=== PATIENT | female | born 1940 | race Two or more races ===

== ENCOUNTER 2023-07-04 11:15 | Inpatient (IN) | payer OTHER ==
[~2023-07-04] VITALS: Ht 162.6 cm; Wt 61.2 kg
[2023-07-16] MEDS ORDERED: TRELEGY ELLIPT1 EAC1 (08:08)
[2023-07-16] MEDS ORDERED: AZELASTINE137 MCG/0. (08:08)
[2023-07-16] MEDS ORDERED: FLONASE16 GM (08:08)
[2023-07-16] MEDS ORDERED: MONTELUKAST SOD10 MG (08:08)
[2023-07-16] MEDS ORDERED: PENTOXIFYLLINE400 MG (08:08)
[2023-07-16] MEDS ORDERED: LEVO-T25 MCG (08:08)
[2023-07-16] MEDS ORDERED: AMLODIPINE BESYL5 MG (08:08)
[2023-07-16] MEDS ORDERED: CEFTRIAXONE SODIUM 2,000 MG VIAL IV ONE (08:30)
[2023-07-16] MEDS ORDERED: METRONIDAZOLE/SODIUM CHLORIDE 500 MG/100 ML PIGGYBACK IV ONE (08:30)
[2023-07-16] MEDS ORDERED: ENALAPRILAT DIHYDRATE 1.25 MG/ML VIAL IV ONE (08:45)
[2023-07-16] MEDS ORDERED: CELECOXIB 200 MG CAPSULE PO SCH ×2 (10:37→17:00)
[2023-07-16] MEDS ORDERED: ONDANSETRON HCL 2 MG/ML VIAL IV PRN ×2 (10:45→11:00)
[2023-07-16] MEDS ORDERED: RINGERS SOLUTION,LACTATED 1,000 ML IV SCH ×2 (10:45→11:00)
[2023-07-16] MEDS ORDERED: DEXTROSE 50 % IN WATER 0.5 G/ML DISP.SYRIN IV PRN (10:45)
[2023-07-16] MEDS ORDERED: MORPHINE SULFATE 4 MG/ML CARTRIDGE IV PRN ×2 (10:45→11:00)
[2023-07-16] MEDS ORDERED: OxyCODONE HCL 5 MG TABLET (ROXICODONE) PO PRN ×2 (10:45→11:00)
[2023-07-16] MEDS ORDERED: DEXTROSE 50 % IN WATER 0.5 G/ML VIAL IV PRN (11:00)
[2023-07-16] MEDS ORDERED: MORPHINE SULFATE 4 MG/ML VIAL IV ONE ×2 (11:40→12:30)
[2023-07-16] MEDS ORDERED: ONDANSETRON HCL 2 MG/ML VIAL ONE (12:33)
[2023-07-16] MEDS ORDERED: ONDANSETRON HCL 2 MG/ML VIAL IV ONE (12:35)
[2023-07-16] MEDS ORDERED: HYOSCYAMINE SULFATE 0.125 MG TAB.SUBL SL SCH ×2 (13:00)
[2023-07-16] MEDS ORDERED: SIMETHICONE 125 MG CAPSULE PO SCH (13:00)
[2023-07-16] MEDS ORDERED: ALBUTEROL SULFATE 3 ML/2.5 MG AMPUL.NEB IH SCH (13:40)
[2023-07-16] MEDS ORDERED: ENALAPRILAT DIHYDRATE 1.25 MG/ML VIAL IV PRN (13:45)
[2023-07-16] MEDS ORDERED: ACETAMINOPHEN 500 MG GEL..CAP PO SCH ×2 (14:00)
[2023-07-16 14:18] LABS: HEMATOCRIT 34.1 % (36.0-45.00); HEMOGLOBIN 11.4 g/dL (12.0-15.00); MEAN CORPUSCULAR HEMOGLOBIN 29.5 pg (27.00-32.0); MEAN CORPUSCULAR HGB CONC 33.6 g/dl (32.0-36.0); PLATELET COUNT 164 K/uL (150-450); RED BLOOD COUNT 3.87 M/uL (4.00-6.00); RED CELL DISTRIBUTION WIDTH 14.2 % (11.5-14.5)
[2023-07-16 14:24] LABS: ABG PH 7.366 (7.35-7.45); ABG pCO2 38.3 mmHg (35-45); BASE EXCESS -3.4 mmol/l; BICARBONATE 21.5 mmol/l (23-25); SaO2 95.1 %; Tco2 22.7 mmol/l
[2023-07-16 14:36] LABS: allen test SATISFACTORY; o2 21 %; puncture site RADIAL LEFT
[2023-07-16] MEDS ORDERED: GABAPENTIN 300 MG CAPSULE PO SCH ×2 (17:00)
[2023-07-16] MEDS ORDERED: METOCLOPRAMIDE HCL 5 MG/ML VIAL IV SCH (17:00)
[2023-07-16] MEDS ORDERED: POLYETHYLENE GLYCOL 3350 17 GM BLIST.PACK PO SCH ×2 (17:00)
[2023-07-16] MEDS ORDERED: FAMOTIDINE/PF 20 MG/2 ML VIAL IV PUSH SCH ×2 (21:00)
[2023-07-16] MEDS ORDERED: MONTELUKAST SODIUM 10 MG TABLET PO SCH (21:00)
[2023-07-17] MEDS ORDERED: SYNTHROID 75 MCG (MARCA ORIGINAL) PO SCH (06:00)
[2023-07-17 08:18] LABS: HEMATOCRIT 32.6 % (36.0-45.00); HEMOGLOBIN 10.8 g/dL (12.0-15.00); MEAN CELL VOLUME 90.1 fL (80.00-100.00); MEAN CORPUSCULAR HEMOGLOBIN 29.9 pg (27.00-32.0); MEAN CORPUSCULAR HGB CONC 33.2 g/dl (32.0-36.0); RED BLOOD COUNT 3.62 M/uL (4.00-6.00); RED CELL DISTRIBUTION WIDTH 14.2 % (11.5-14.5)
[2023-07-17 08:21] LABS: PLATELET COUNT 130 K/uL (150-450)
[2023-07-17 08:35] LABS: ALBUMIN 2.8 gm/dL (3.4-5.0); CALCIUM 7.7 mg/dL (8.5-10.1); CREATININE SERUM 1.06 mg/dL (0.55-1.02); GFR 49.27; MAGNESIUM 1.8 mg/dL (1.8-2.4); PHOSPHOROUS 4.7 mg/dL (2.5-4.9); POTASSIUM 4.91 mEq/L (3.5-5.1)
[2023-07-17] MEDS ORDERED: LACTOBACILLUS ACIDOPHILUS 1 CAP CAP PO SCH (09:00)
[2023-07-17] MEDS ORDERED: LACTULOSE 20 G/30 ML BLIST.PACK PO SCH ×2 (09:00)
[2023-07-17] MEDS ORDERED: AMLODIPINE BESYLATE 5 MG TABLET PO SCH (09:00)
[2023-07-17] MEDS ORDERED: Cyanocobalamin/Mecobalamin 1 TAB.SL SL SCH ×2 (11:06→12:00)
[2023-07-17] MEDS ORDERED: SOD FERRIC GLUC COMPLX/SUCROSE 62.5 MG in 0.9 % SODIUM CHLORIDE 50 ML IV SCH (12:00)
[2023-07-17] MEDS ORDERED: ENOXAPARIN SODIUM 40 MG/0.4 ML SYRINGE SUBCUTANEO SCH ×2 (17:00)
[2023-07-18 07:09] LABS: HEMATOCRIT 32.4 % (36.0-45.00); HEMOGLOBIN 10.8 g/dL (12.0-15.00); MEAN CORPUSCULAR HEMOGLOBIN 30.1 pg (27.00-32.0); MEAN CORPUSCULAR HGB CONC 33.5 g/dl (32.0-36.0); PLATELET COUNT 125 K/uL (150-450); RED BLOOD COUNT 3.59 M/uL (4.00-6.00); RED CELL DISTRIBUTION WIDTH 14.2 % (11.5-14.5)
[2023-07-18 07:59] LABS: MANUAL PLATELET COUNT 408
[2023-07-18 08:13] LABS: CREATININE SERUM 0.96 mg/dL (0.55-1.02); GFR 55.24; PHOSPHOROUS 2.9 mg/dL (2.5-4.9); POTASSIUM 4.69 mEq/L (3.5-5.1)
[2023-07-18] MEDS ORDERED: ENOXAPARIN SODIUM 40 MG/0.4 ML SYRINGE SUBCUTANEO SCH ×2 (09:00)
[2023-07-18] MEDS ORDERED: MORPHINE SULFATE 4 MG/ML CARTRIDGE IV PRN (13:30)
[2023-07-19] MEDS ORDERED: TAMSULOSIN HCL 0.4 MG CAP PO STA (05:31)
[2023-07-19 08:24] LABS: HEMOGLOBIN 11.7 g/dL (12.0-15.00); MEAN CELL VOLUME 90.4 fL (80.00-100.00); MEAN CORPUSCULAR HEMOGLOBIN 30.2 pg (27.00-32.0); MEAN CORPUSCULAR HGB CONC 33.5 g/dl (32.0-36.0); PLATELET COUNT 158 K/uL (150-450); RED BLOOD COUNT 3.88 M/uL (4.00-6.00); RED CELL DISTRIBUTION WIDTH 14.4 % (11.5-14.5)
[2023-07-19] MEDS ORDERED: POLYETHYLENE GLYCOL 3350 17 GM BLIST.PACK PO SCH (09:00)
[2023-07-19] MEDS ORDERED: LEVALBUTEROL HCL 0.63 MG/3 ML SOLUTION IH SCH (17:00)
[2023-07-19] MEDS ORDERED: TAMSULOSIN HCL 0.4 MG CAP PO SCH (21:00)
[2023-07-19] MEDS ORDERED: PANTOPRAZOLE SODIUM 40 MG/VIAL VIAL IV SCH (21:45)
[2023-07-19] MEDS ORDERED: INSULIN LISPRO 1,000 UNIT/10 ML UNITS SUBCUTANEO PRN (22:45)
[2023-07-19] MEDS ORDERED: DEXTROSE 50 % IN WATER 0.5 G/ML VIAL IV PRN (22:45)
[2023-07-20] MEDS ORDERED: PIPERACILLIN/TAZOBACTAM SODIUM 3.375 GM in 0.9 % SODIUM CHLORIDE 100 ML IV SCH (06:32)
[2023-07-20 07:23] LABS: CALCIUM 8.5 mg/dL (8.5-10.1); CREATININE SERUM 1.92 mg/dL (0.55-1.02); GFR 24.82; MAGNESIUM 2.3 mg/dL (1.8-2.4); PHOSPHOROUS 4.1 mg/dL (2.5-4.9); POTASSIUM 4.72 mEq/L (3.5-5.1)
[2023-07-20 07:24] LABS: CHOL HDL RATIO 8.2 (0-5.0)
[2023-07-20 11:40] LABS: HEMATOCRIT 30.4 % (36.0-45.00); HEMOGLOBIN 10.2 g/dL (12.0-15.00); MEAN CELL VOLUME 88.9 fL (80.00-100.00); MEAN CORPUSCULAR HEMOGLOBIN 29.7 pg (27.00-32.0); MEAN CORPUSCULAR HGB CONC 33.4 g/dl (32.0-36.0); PLATELET COUNT 201 K/uL (150-450); RED BLOOD COUNT 3.41 M/uL (4.00-6.00)
[2023-07-20] MEDS ORDERED: DIATRIZOATE MEGLUMINE, SODIUM 30 ML BOTTLE PO NR (15:30)
[2023-07-20] MEDS ORDERED: AMINO ACIDS 4.25 %/DEXTROSE 5% 1,000 ML PERIFERAL SCH (17:00)
[2023-07-20] MEDS ORDERED: LORazepam 2 MG/ML VIAL IV SCH (21:00)
[2023-07-21] MEDS ORDERED: DIATRIZOATE MEGLUMINE, SODIUM 30 ML BOTTLE PO NR (09:00)
[2023-07-21 09:14] LABS: HEMATOCRIT 28.1 % (36.0-45.00); HEMOGLOBIN 9.4 g/dL (12.0-15.00); MEAN CELL VOLUME 89.4 fL (80.00-100.00); MEAN CORPUSCULAR HGB CONC 33.5 g/dl (32.0-36.0); PLATELET COUNT 177 K/uL (150-450); RED BLOOD COUNT 3.14 M/uL (4.00-6.00); RED CELL DISTRIBUTION WIDTH 14.7 % (11.5-14.5)
[2023-07-21 09:40] LABS: CALCIUM 8.1 mg/dL (8.5-10.1); CREATININE SERUM 1.07 mg/dL (0.55-1.02); GFR 48.74; PHOSPHOROUS 2.9 mg/dL (2.5-4.9); POTASSIUM 3.96 mEq/L (3.5-5.1)
[2023-07-21] MEDS ORDERED: TEMAZEPAM 15 MG CAPSULE PO SCH ×2 (17:00→21:00)
[2023-07-22 07:41] LABS: ALBUMIN 2.1 gm/dL (3.4-5.0); BILIRUBIN TOTAL 0.57 mg/dL (0.3-1.2); BILIRUBIN,CONJUGATED 0.18 mg/dL (0.0-0.2); BILIRUBIN,UNCONJUGATED 0.39 mg/dL (0.0-0.6); CALCIUM 8.4 mg/dL (8.5-10.1); CREATININE SERUM 0.81 mg/dL (0.55-1.02); GFR 67.2; GLOBULINA 2.8 G/DL (2.4-3.5); MAGNESIUM 1.9 mg/dL (1.8-2.4); POTASSIUM 4.78 mEq/L (3.5-5.1); TOTAL PROTEIN 4.9 gm/dL (6.4-8.2)
[2023-07-22 07:47] LABS: HEMATOCRIT 35.3 % (36.0-45.00); HEMOGLOBIN 11.6 g/dL (12.0-15.00); MEAN CELL VOLUME 89.1 fL (80.00-100.00); MEAN CORPUSCULAR HEMOGLOBIN 29.3 pg (27.00-32.0); MEAN CORPUSCULAR HGB CONC 32.8 g/dl (32.0-36.0); PLATELET COUNT 220 K/uL (150-450); RED BLOOD COUNT 3.96 M/uL (4.00-6.00); RED CELL DISTRIBUTION WIDTH 14.4 % (11.5-14.5)
[2023-07-22 07:50] LABS: INR 0.96; PARTIAL THROMBOPLASTIN TIME 31.3 SECONDS (22.0-34.0); PROTHROMBIN TIME 10.1 SECONDS (9.0-11.5)
[2023-07-22] MEDS ORDERED: LORazepam 2 MG/ML VIAL IV PUSH STA (08:48)
[2023-07-22] MEDS ORDERED: VANCOMYCIN HCL 1,000 MG VIAL IV SCH (13:00)
[2023-07-22] MEDS ORDERED: MEROPENEM 500 MG in 0.9 % SODIUM CHLORIDE 50 ML IV SCH (13:00)
[2023-07-22 13:32] LABS: ABG PH 7.449 (7.35-7.45); ABG pCO2 25.9 mmHg (35-45); BASE EXCESS -4.6 mmol/l; BICARBONATE 17.5 mmol/l (23-25); SaO2 93.7 %; Tco2 18.3 mmol/l
[2023-07-22 13:42] LABS: o2 21 %; puncture site RADIAL RIGHT
[2023-07-22 13:43] LABS: allen test SATISFACTORY
[2023-07-22] MEDS ORDERED: AA 4.25%/CAL/LYTES/DEXT 5% 1,000 ML PERIFERAL SCH (17:00)
[2023-07-23 07:59] LABS: HEMATOCRIT 35.2 % (36.0-45.00); HEMOGLOBIN 11.9 g/dL (12.0-15.00); MEAN CELL VOLUME 86.9 fL (80.00-100.00); MEAN CORPUSCULAR HEMOGLOBIN 29.4 pg (27.00-32.0); MEAN CORPUSCULAR HGB CONC 33.8 g/dl (32.0-36.0); PLATELET COUNT 232 K/uL (150-450); RED BLOOD COUNT 4.05 M/uL (4.00-6.00); RED CELL DISTRIBUTION WIDTH 14.6 % (11.5-14.5)
[2023-07-23 08:32] LABS: CALCIUM 8.1 mg/dL (8.5-10.1); CREATININE SERUM 0.72 mg/dL (0.55-1.02); GFR 76.98; MAGNESIUM 1.7 mg/dL (1.8-2.4); PHOSPHOROUS 2.8 mg/dL (2.5-4.9); POTASSIUM 3.43 mEq/L (3.5-5.1)
[2023-07-23 08:34] LABS: C-REACTIVE PROTEIN 11.3 MG/DL (0.00-0.29)
[2023-07-23] MEDS ORDERED: POTASSIUM CHLORIDE 20MEQ/100ML H2O PB IV NR (10:15)
[2023-07-23] MEDS ORDERED: MAGNESIUM SULFATE IN WATER 50 ML IV NR (10:15)
[2023-07-23] MEDS ORDERED: MEROPENEM 500 MG in 0.9 % SODIUM CHLORIDE 50 ML IV SCH (14:00)
[2023-07-23] MEDS ORDERED: FLUCONAZOLE IN NACL,ISO-OSM 400 MG/200 ML PIGGYBAG IV SCH (17:00)
[2023-07-23] MEDS ORDERED: GABAPENTIN 250 MG/5 ML ML PO SCH (17:00)
[2023-07-23] MEDS ORDERED: fentaNYL CITRATE 50 MCG/ML AMPUL IV PUSH ONE (17:45)
[2023-07-24] MEDS ORDERED: PANTOPRAZOLE SODIUM 40 MG/VIAL VIAL IV SCH (06:00)
[2023-07-24 07:43] LABS: HEMATOCRIT 30.3 % (36.0-45.00); MEAN CELL VOLUME 89.8 fL (80.00-100.00); MEAN CORPUSCULAR HEMOGLOBIN 29.7 pg (27.00-32.0); MEAN CORPUSCULAR HGB CONC 33.1 g/dl (32.0-36.0); PLATELET COUNT 219 K/uL (150-450); RED BLOOD COUNT 3.37 M/uL (4.00-6.00); RED CELL DISTRIBUTION WIDTH 14.6 % (11.5-14.5)
[2023-07-24 08:30] LABS: CALCIUM 8.2 mg/dL (8.5-10.1); CREATININE SERUM 1.05 mg/dL (0.55-1.02); GFR 49.81; MAGNESIUM 2.4 mg/dL (1.8-2.4); PHOSPHOROUS 3.2 mg/dL (2.5-4.9); POTASSIUM 4.54 mEq/L (3.5-5.1)
[2023-07-24 08:31] LABS: TSH 7.2 uIU/mL (0.358-3.74)
[2023-07-24 08:51] LABS: PLATELET ESTIMATE NORMAL (NORMAL)
[2023-07-24] MEDS ORDERED: FLUCONAZOLE IN NACL,ISO-OSM 100 ML IV SCH (12:00)
[2023-07-24] MEDS ORDERED: LEVOTHYROXINE SODIUM 100 MCG/VIAL VIAL IV STA (13:12)
[2023-07-24] MEDS ORDERED: NYSTATIN 30 GM,SILVER SULFADIAZINE 50 GM,ZINC OXIDE 30 GM TOP SCH (17:00)
[2023-07-24] MEDS ORDERED: ANIDULAFUNGIN 100 MG VIAL IV SCH (17:00)
[2023-07-25 07:42] LABS: HEMATOCRIT 32.2 % (36.0-45.00); HEMOGLOBIN 10.8 g/dL (12.0-15.00); MEAN CORPUSCULAR HEMOGLOBIN 29.8 pg (27.00-32.0); MEAN CORPUSCULAR HGB CONC 33.5 g/dl (32.0-36.0); PLATELET COUNT 243 K/uL (150-450); RED BLOOD COUNT 3.62 M/uL (4.00-6.00); RED CELL DISTRIBUTION WIDTH 14.8 % (11.5-14.5)
[2023-07-25 08:11] LABS: ALBUMIN 1.5 gm/dL (3.4-5.0); BILIRUBIN TOTAL 0.48 mg/dL (0.3-1.2); CREATININE SERUM 1.23 mg/dL (0.55-1.02); GFR 41.5; GLOBULINA 2.9 G/DL (2.4-3.5); MAGNESIUM 2.3 mg/dL (1.8-2.4); PHOSPHOROUS 3.2 mg/dL (2.5-4.9); POTASSIUM 4.51 mEq/L (3.5-5.1); TOTAL PROTEIN 4.4 gm/dL (6.4-8.2)
[2023-07-25] MEDS ORDERED: ANIDULAFUNGIN 100 MG VIAL IV SCH (12:00)
[2023-07-25] MEDS ORDERED: VANCOMYCIN HCL 125 MG/7.5 ML BLIST.PACK PO SCH ×2 (14:00→18:00)
[2023-07-25] MEDS ORDERED: MEROPENEM 500 MG in 0.9 % SODIUM CHLORIDE 50 ML IV SCH (17:00)
[2023-07-25] MEDS ORDERED: LINEZOLID IN DEXTROSE 5% 300 ML IV SCH (17:00)
[2023-07-25] MEDS ORDERED: METRONIDAZOLE/SODIUM CHLORIDE 100 ML IV SCH (17:00)
[2023-07-26] MEDS ORDERED: EMOLLIENT COMBINATION NO.92 2.5 OZ BOTTLE TOP SCH (09:00)
[2023-07-26] MEDS ORDERED: LEVOTHYROXINE SODIUM 100 MCG/VIAL VIAL IV SCH ×2 (09:00)
[2023-07-26] MEDS ORDERED: SOD FERRIC GLUC COMPLX/SUCROSE 62.5 MG in 0.9 % SODIUM CHLORIDE 50 ML IV SCH (09:00)
[2023-07-26 12:26] LABS: HEMATOCRIT 28.6 % (36.0-45.00); HEMOGLOBIN 9.4 g/dL (12.0-15.00); MEAN CELL VOLUME 87.9 fL (80.00-100.00); MEAN CORPUSCULAR HEMOGLOBIN 28.9 pg (27.00-32.0); MEAN CORPUSCULAR HGB CONC 32.9 g/dl (32.0-36.0); PLATELET COUNT 255 K/uL (150-450); RED BLOOD COUNT 3.25 M/uL (4.00-6.00); RED CELL DISTRIBUTION WIDTH 15.2 % (11.5-14.5)
[2023-07-26 12:42] LABS: CALCIUM 7.8 mg/dL (8.5-10.1); CREATININE SERUM 1.42 mg/dL (0.55-1.02); GFR 35.16; MAGNESIUM 2.3 mg/dL (1.8-2.4); PHOSPHOROUS 3.7 mg/dL (2.5-4.9); POTASSIUM 4.79 mEq/L (3.5-5.1)
[2023-07-26] MEDS ORDERED: ONDANSETRON HCL 2 MG/ML VIAL IV PRN (17:45)
[2023-07-27 08:00] LABS: CALCIUM 7.7 mg/dL (8.5-10.1); CREATININE SERUM 1.56 mg/dL (0.55-1.02); GFR 31.54; MAGNESIUM 2.1 mg/dL (1.8-2.4); PHOSPHOROUS 3.7 mg/dL (2.5-4.9); POTASSIUM 5.23 mEq/L (3.5-5.1)
[2023-07-27 08:12] LABS: HEMATOCRIT 26.2 % (36.0-45.00); MEAN CORPUSCULAR HEMOGLOBIN 29.5 pg (27.00-32.0); MEAN CORPUSCULAR HGB CONC 33.2 g/dl (32.0-36.0); PLATELET COUNT 267 K/uL (150-450); RED BLOOD COUNT 2.94 M/uL (4.00-6.00)
[2023-07-27 08:25] LABS: HEMOGLOBIN 8.7 g/dL (12.0-15.00)
[2023-07-27] MEDS ORDERED: ENOXAPARIN SODIUM 30 MG/0.3 ML SYRINGE SUBCUTANEO SCH (09:00)
[2023-07-27] MEDS ORDERED: FUROsemide 20 MG/2 ML VIAL IV SCH (09:00)
[2023-07-28] MEDS ORDERED: ACETAMINOPHEN 500 MG GEL..CAP PO PRN (08:30)
[2023-07-29 03:39] LABS: ALBUMIN 1.2 gm/dL (3.4-5.0); BILIRUBIN TOTAL 0.5 mg/dL (0.3-1.2); CALCIUM 7.6 mg/dL (8.5-10.1); CREATININE SERUM 1.58 mg/dL (0.55-1.02); GFR 31.08; GLOBULINA 3.4 G/DL (2.4-3.5); POTASSIUM 5.32 mEq/L (3.5-5.1); TOTAL PROTEIN 4.6 gm/dL (6.4-8.2)
[2023-07-29 03:46] LABS: HEMATOCRIT 34.3 % (36.0-45.00); HEMOGLOBIN 11.5 g/dL (12.0-15.00); MEAN CELL VOLUME 86.7 fL (80.00-100.00); MEAN CORPUSCULAR HEMOGLOBIN 29.1 pg (27.00-32.0); MEAN CORPUSCULAR HGB CONC 33.6 g/dl (32.0-36.0); PLATELET COUNT 365 K/uL (150-450); RED BLOOD COUNT 3.96 M/uL (4.00-6.00); RED CELL DISTRIBUTION WIDTH 14.5 % (11.5-14.5)
[2023-07-29] MEDS ORDERED: DIATRIZOATE MEGLUMINE, SODIUM 30 ML BOTTLE PO NR (07:00)
[2023-07-29] MEDS ORDERED: MEPERIDINE HCL/PF 25 MG/ML VIAL IV STA (09:41)
[2023-07-29] MEDS ORDERED: MEPERIDINE HCL/PF 25 MG/ML VIAL IV PRN (09:45)
[2023-07-30 11:26] LABS: HEMATOCRIT 32.4 % (36.0-45.00); HEMOGLOBIN 10.9 g/dL (12.0-15.00); MEAN CORPUSCULAR HEMOGLOBIN 29.8 pg (27.00-32.0); MEAN CORPUSCULAR HGB CONC 33.8 g/dl (32.0-36.0); PLATELET COUNT 420 K/uL (150-450); RED BLOOD COUNT 3.68 M/uL (4.00-6.00); RED CELL DISTRIBUTION WIDTH 14.3 % (11.5-14.5)
[2023-07-30 11:44] LABS: CREATININE SERUM 1.61 mg/dL (0.55-1.02); GFR 30.41; MAGNESIUM 2.1 mg/dL (1.8-2.4); PHOSPHOROUS 3.7 mg/dL (2.5-4.9); POTASSIUM 4.76 mEq/L (3.5-5.1)
[2023-07-30 11:50] LABS: C-REACTIVE PROTEIN 8.76 MG/DL (0.00-0.29)
[2023-07-30] MEDS ORDERED: fentaNYL CITRATE 50 MCG/ML AMPUL IV PUSH ONE (19:00)
[2023-07-31] MEDS ORDERED: LEVOTHYROXINE SODIUM 100 MCG/VIAL VIAL IV SCH (09:00)
[2023-07-31 10:44] LABS: HEMATOCRIT 30.3 % (36.0-45.00); HEMOGLOBIN 10.3 g/dL (12.0-15.00); MEAN CELL VOLUME 86.9 fL (80.00-100.00); MEAN CORPUSCULAR HEMOGLOBIN 29.6 pg (27.00-32.0); MEAN CORPUSCULAR HGB CONC 34.1 g/dl (32.0-36.0); PLATELET COUNT 406 K/uL (150-450); RED BLOOD COUNT 3.49 M/uL (4.00-6.00); RED CELL DISTRIBUTION WIDTH 14.7 % (11.5-14.5)
[2023-07-31 11:38] LABS: CALCIUM 8.1 mg/dL (8.5-10.1); CREATININE SERUM 1.41 mg/dL (0.55-1.02); GFR 35.45; PHOSPHOROUS 3.9 mg/dL (2.5-4.9); POTASSIUM 5.28 mEq/L (3.5-5.1)
[2023-08-01 07:59] LABS: HEMOGLOBIN 9.5 g/dL (12.0-15.00); MEAN CORPUSCULAR HEMOGLOBIN 29.8 pg (27.00-32.0); MEAN CORPUSCULAR HGB CONC 33.9 g/dl (32.0-36.0); PLATELET COUNT 354 K/uL (150-450); RED BLOOD COUNT 3.18 M/uL (4.00-6.00); RED CELL DISTRIBUTION WIDTH 14.7 % (11.5-14.5)
[2023-08-01 08:22] LABS: CALCIUM 7.8 mg/dL (8.5-10.1); CREATININE SERUM 1.27 mg/dL (0.55-1.02); GFR 39.99; MAGNESIUM 2.1 mg/dL (1.8-2.4); PHOSPHOROUS 5.1 mg/dL (2.5-4.9)
[2023-08-01 08:42] LABS: POTASSIUM 6.18 mEq/L (3.5-5.1)
[2023-08-01] MEDS ORDERED: SODIUM POLYSTYRENE SULFONATE 15 G/4 TSP TSP PO SCH (09:15)
[2023-08-01] MEDS ORDERED: 0.9 % SODIUM CHLORIDE 1,000 ML IV SCH (11:15)
[2023-08-02 10:53] LABS: HEMOGLOBIN 10.6 g/dL (12.0-15.00); MEAN CELL VOLUME 88.5 fL (80.00-100.00); MEAN CORPUSCULAR HEMOGLOBIN 30.3 pg (27.00-32.0); MEAN CORPUSCULAR HGB CONC 34.2 g/dl (32.0-36.0); PLATELET COUNT 366 K/uL (150-450); RED CELL DISTRIBUTION WIDTH 14.2 % (11.5-14.5)
[2023-08-02 11:21] LABS: CALCIUM 7.8 mg/dL (8.5-10.1); CREATININE SERUM 1.02 mg/dL (0.55-1.02); GFR 51.5; MAGNESIUM 1.8 mg/dL (1.8-2.4); PHOSPHOROUS 3.4 mg/dL (2.5-4.9); POTASSIUM 4.48 mEq/L (3.5-5.1)
[2023-08-02] MEDS ORDERED: GABAPENTIN 100 MG CAPSULE PO SCH (17:00)
[2023-08-02] MEDS ORDERED: GABAPENTIN 300 MG CAPSULE PO SCH (21:00)
[2023-08-02] MEDS ORDERED: GABAPENTIN 250 MG/5 ML ML PO SCH (21:00)
[2023-08-03] MEDS ORDERED: GABAPENTIN 300 MG CAPSULE PO SCH (21:00)
[2023-08-04] MEDS ORDERED: SILVER SULFADIAZINE 50 GM JAR TOP ONE (08:46)
[2023-08-05 08:50] LABS: HEMATOCRIT 32.1 % (36.0-45.00); HEMOGLOBIN 10.9 g/dL (12.0-15.00); MEAN CORPUSCULAR HEMOGLOBIN 30.3 pg (27.00-32.0); MEAN CORPUSCULAR HGB CONC 34.1 g/dl (32.0-36.0); PLATELET COUNT 268 K/uL (150-450)
[2023-08-05 09:07] LABS: INR 1.09; PROTHROMBIN TIME 11.4 SECONDS (9.0-11.5)
[2023-08-05 09:26] LABS: ALBUMIN 1.5 gm/dL (3.4-5.0); ALKALINE PHOSPHATASE 101 U/L (50-136); ALT/SGPT 9 U/L (12-78); ANION GAP 8 (10.0-20.0); AST/SGOT 17 U/L (15-37); BILIRUBIN TOTAL 0.29 mg/dL (0.3-1.2); BILIRUBIN,CONJUGATED < 0.10 mg/dL (0.0-0.2); BILIRUBIN,UNCONJUGATED 0.19 mg/dL (0.0-0.6); BLOOD UREA NITROGEN 20 mg/dL (7-18); BUN CREA RATIO 26 (7.0-25.0); CALCIUM 7.7 mg/dL (8.5-10.1); CARBON DIOXIDE 28 mEq/L (21-32); CHLORIDE 108 mmol/L (98-107); CHOL HDL RATIO 4.6 (0-5.0); CHOLESTEROL 96 mg/dL (0-200); CREATININE SERUM 0.76 mg/dL (0.55-1.02); GFR 72.33; GLOBULINA 3.1 G/DL (2.4-3.5); GLUCOSE FASTING 133 mg/dL (65-100); HDL 21 mg/dl (40-60); LDL 46 mg/dl (0-130); OSMOLALITY SERUM 282 MOSM/KG (275-295); SODIUM 139 mmol/L (136-145); TOTAL PROTEIN 4.6 gm/dL (6.4-8.2); TRIGLYCERIDES 143 mg/dL (0-150); VLDL 28 (0-39)
[2023-08-05 09:39] LABS: UREA CLEARANCE 23.7 ML/MIN
[2023-08-05] MEDS ORDERED: MAGNESIUM SULFATE IN WATER 50 ML IV ONE (11:00)
[2023-08-05] MEDS ORDERED: LIDOCAINE 5% 1 PATCH ADH. TOP SCH (11:30)
[2023-08-05] MEDS ORDERED: TRAMADOL HCL 50 MG TABLET PO PRN (11:30)
[2023-08-06] MEDS ORDERED: PANTOPRAZOLE SODIUM 80 MG in 0.9 % SODIUM CHLORIDE 100 ML IV SCH (06:15)
[2023-08-06] MEDS ORDERED: PANTOPRAZOLE SODIUM 40 MG/VIAL VIAL IV SCH (06:15)
[2023-08-06] MEDS ORDERED: DIATRIZOATE MEGLUMINE, SODIUM 30 ML BOTTLE PO NR (08:00)
[2023-08-06] MEDS ORDERED: AMINO ACIDS 1 EACH TABLET PO SCH (09:00)
[2023-08-06] MEDS ORDERED: LEVOTHYROXINE SODIUM 100 MCG/VIAL VIAL IV SCH (09:00)
[2023-08-06] MEDS ORDERED: SOD FERRIC GLUC COMPLX/SUCROSE 62.5 MG in 0.9 % SODIUM CHLORIDE 50 ML IV SCH (09:00)
[2023-08-06] MEDS ORDERED: DIPHENHYDRAMINE HCL 50 MG/ML VIAL 1ML IV STA ×2 (09:15→14:05)
[2023-08-07 09:18] LABS: HEMATOCRIT 28.4 % (36.0-45.00); HEMOGLOBIN 9.7 g/dL (12.0-15.00); MEAN CELL VOLUME 87.6 fL (80.00-100.00); MEAN CORPUSCULAR HEMOGLOBIN 29.8 pg (27.00-32.0); PLATELET COUNT 146 K/uL (150-450); RED BLOOD COUNT 3.25 M/uL (4.00-6.00)
[2023-08-07 09:59] LABS: CREATININE SERUM 0.76 mg/dL (0.55-1.02); GFR 72.33; MAGNESIUM 1.7 mg/dL (1.8-2.4); PHOSPHOROUS 3.1 mg/dL (2.5-4.9); POTASSIUM 4.03 mEq/L (3.5-5.1)
[2023-08-07 10:01] LABS: C-REACTIVE PROTEIN 1.46 MG/DL (0.00-0.29)
[2023-08-07] MEDS ORDERED: MAGNESIUM SULFATE IN WATER 50 ML IV NR (11:45)
[2023-08-07] MEDS ORDERED: ONDANSETRON HCL 2 MG/ML VIAL IV PRN (22:15)
[2023-08-08] MEDS ORDERED: SUCRALFATE 1 G TABLET PO SCH (17:00)
[2023-08-09 12:21] LABS: HEMATOCRIT 29.4 % (36.0-45.00); MEAN CELL VOLUME 87.8 fL (80.00-100.00); MEAN CORPUSCULAR HEMOGLOBIN 29.8 pg (27.00-32.0); MEAN CORPUSCULAR HGB CONC 33.9 g/dl (32.0-36.0); RED BLOOD COUNT 3.34 M/uL (4.00-6.00); RED CELL DISTRIBUTION WIDTH 14.1 % (11.5-14.5)
[2023-08-09 12:23] LABS: CREATININE SERUM 0.65 mg/dL (0.55-1.02); GFR 86.63; MAGNESIUM 1.7 mg/dL (1.8-2.4); PHOSPHOROUS 2.9 mg/dL (2.5-4.9); PLATELET COUNT 99 K/uL (150-450); POTASSIUM 4.38 mEq/L (3.5-5.1)
[2023-08-10] MEDS ORDERED: PANTOPRAZOLE SODIUM 40 MG/VIAL VIAL IV SCH (06:00)
[2023-08-10] MEDS ORDERED: MAGNESIUM SULFATE IN WATER 50 ML IV NR (10:51)
[2023-08-10] MEDS ORDERED: PRAMOXINE HCL/CALAMINE 180 ML BOTTLE TOP SCH (12:58)
[2023-08-12 09:39] LABS: HEMATOCRIT 28.8 % (36.0-45.00); MEAN CORPUSCULAR HEMOGLOBIN 29.8 pg (27.00-32.0); MEAN CORPUSCULAR HGB CONC 34.6 g/dl (32.0-36.0); RED BLOOD COUNT 3.35 M/uL (4.00-6.00); RED CELL DISTRIBUTION WIDTH 13.9 % (11.5-14.5)
[2023-08-12 10:02] LABS: ALBUMIN 1.8 gm/dL (3.4-5.0); CALCIUM 7.9 mg/dL (8.5-10.1); CREATININE SERUM 0.49 mg/dL (0.55-1.02); GFR 120.03; MAGNESIUM 1.7 mg/dL (1.8-2.4); PHOSPHOROUS 2.8 mg/dL (2.5-4.9); POTASSIUM 3.96 mEq/L (3.5-5.1)
[2023-08-12 10:19] LABS: ERYTHROCYTE SEDIMENTATION RATE 33 mm/hr
[2023-08-12 10:26] LABS: C-REACTIVE PROTEIN 1.64 MG/DL (0.00-0.29)
[2023-08-12 10:28] LABS: PLATELET COUNT 113 K/uL (150-450)
[2023-08-12 11:04] LABS: UREA CLEARANCE 22.4 ML/MIN
[2023-08-12] MEDS ORDERED: MAGNESIUM SULFATE IN WATER 50 ML IV NR (11:15)
[2023-08-13] MEDS ORDERED: DIATRIZOATE MEGLUMINE, SODIUM 30 ML BOTTLE PO SCH (04:00)
[2023-08-13] MEDS ORDERED: METHYLPREDNISOLONE SOD SUCC 40 MG VIAL IV NR (06:00)
[2023-08-13] MEDS ORDERED: DIPHENHYDRAMINE HCL 50 MG/ML VIAL 1ML IV NR (06:00)
[2023-08-14] MEDS ORDERED: AMINO ACIDS 4.25 %/DEXTROSE 5% 1,000 ML PERIFERAL SCH (17:00)
[2023-08-14] MEDS ORDERED: GABAPENTIN 100 MG CAPSULE PO SCH (21:00)
[2023-08-15 07:34] LABS: HEMATOCRIT 28.8 % (36.0-45.00); HEMOGLOBIN 9.6 g/dL (12.0-15.00); MEAN CELL VOLUME 87.9 fL (80.00-100.00); MEAN CORPUSCULAR HEMOGLOBIN 29.2 pg (27.00-32.0); MEAN CORPUSCULAR HGB CONC 33.3 g/dl (32.0-36.0); PLATELET COUNT 193 K/uL (150-450); RED BLOOD COUNT 3.27 M/uL (4.00-6.00); RED CELL DISTRIBUTION WIDTH 13.9 % (11.5-14.5)
[2023-08-15 08:02] LABS: CALCIUM 8.4 mg/dL (8.5-10.1); CREATININE SERUM 0.52 mg/dL (0.55-1.02); GFR 112.07; MAGNESIUM 1.7 mg/dL (1.8-2.4); PHOSPHOROUS 3.2 mg/dL (2.5-4.9); POTASSIUM 4.12 mEq/L (3.5-5.1)
[2023-08-15] MEDS ORDERED: MAGNESIUM SULFATE IN WATER 50 ML IV NR (08:45)
[2023-08-15] MEDS ORDERED: hydrOXYzine HCL 25 MG TABLET PO PRN (10:45)
[2023-08-15] MEDS ORDERED: THIAMINE HCL 100 MG/ML 2 ML VIAL IV SCH (16:11)
[2023-08-15] MEDS ORDERED: FAMOTIDINE/PF 20 MG/2 ML VIAL IV SCH (21:00)
[2023-08-16 09:27] LABS: CALCIUM 8.5 mg/dL (8.5-10.1); CREATININE SERUM 0.51 mg/dL (0.55-1.02); GFR 114.61; MAGNESIUM 1.6 mg/dL (1.8-2.4); PHOSPHOROUS 2.3 mg/dL (2.5-4.9); POTASSIUM 3.86 mEq/L (3.5-5.1)
[2023-08-18 13:23] LABS: HEMATOCRIT 34.4 % (36.0-45.00); HEMOGLOBIN 11.7 g/dL (12.0-15.00); MEAN CELL VOLUME 87.6 fL (80.00-100.00); MEAN CORPUSCULAR HEMOGLOBIN 29.7 pg (27.00-32.0); MEAN CORPUSCULAR HGB CONC 33.9 g/dl (32.0-36.0); PLATELET COUNT 261 K/uL (150-450); RED BLOOD COUNT 3.92 M/uL (4.00-6.00); RED CELL DISTRIBUTION WIDTH 14.9 % (11.5-14.5)
[2023-08-18 14:17] LABS: ALBUMIN 2.2 gm/dL (3.4-5.0); BILIRUBIN TOTAL 0.34 mg/dL (0.3-1.2); CALCIUM 8.6 mg/dL (8.5-10.1); CREATININE SERUM 0.62 mg/dL (0.55-1.02); GFR 91.48; GLOBULINA 3.5 G/DL (2.4-3.5); POTASSIUM 3.2 mEq/L (3.5-5.1); TOTAL PROTEIN 5.7 gm/dL (6.4-8.2)
[2023-08-19 07:17] LABS: HEMATOCRIT 29.6 % (36.0-45.00); MEAN CELL VOLUME 86.3 fL (80.00-100.00); MEAN CORPUSCULAR HEMOGLOBIN 29.2 pg (27.00-32.0); MEAN CORPUSCULAR HGB CONC 33.9 g/dl (32.0-36.0); PLATELET COUNT 235 K/uL (150-450); RED BLOOD COUNT 3.43 M/uL (4.00-6.00); RED CELL DISTRIBUTION WIDTH 14.8 % (11.5-14.5)
[2023-08-19 07:41] LABS: INR 1.2; PARTIAL THROMBOPLASTIN TIME 34.7 SECONDS (22.0-34.0); PROTHROMBIN TIME 12.4 SECONDS (9.0-11.5)
[2023-08-19 07:59] LABS: ALBUMIN 1.9 gm/dL (3.4-5.0); ALKALINE PHOSPHATASE 99 U/L (50-136); ALT/SGPT 6 U/L (12-78); ANION GAP 7 (10.0-20.0); AST/SGOT 11 U/L (15-37); BILIRUBIN TOTAL 0.26 mg/dL (0.3-1.2); BILIRUBIN,CONJUGATED < 0.10 mg/dL (0.0-0.2); BILIRUBIN,UNCONJUGATED 0.16 mg/dL (0.0-0.6); BLOOD UREA NITROGEN 18 mg/dL (7-18); BUN CREA RATIO 35 (7.0-25.0); CALCIUM 8.1 mg/dL (8.5-10.1); CARBON DIOXIDE 28 mEq/L (21-32); CHLORIDE 109 mmol/L (98-107); CHOL HDL RATIO 5.1 (0-5.0); CHOLESTEROL 113 mg/dL (0-200); CREATININE SERUM 0.51 mg/dL (0.55-1.02); GFR 114.61; GLOBULINA 2.9 G/DL (2.4-3.5); GLUCOSE FASTING 103 mg/dL (65-100); HDL 22 mg/dl (40-60); LDL 58 mg/dl (0-130); OSMOLALITY SERUM 283 MOSM/KG (275-295); POTASSIUM 3.03 mEq/L (3.5-5.1); SODIUM 141 mmol/L (136-145); TOTAL PROTEIN 4.8 gm/dL (6.4-8.2); TRIGLYCERIDES 167 mg/dL (0-150); VLDL 33 (0-39)
[2023-08-19 08:23] LABS: T4 TOTAL 9.2 UG/DL (4.8-13.9); TSH 3.77 uIU/mL (0.358-3.74)
[2023-08-19] MEDS ORDERED: MAGNESIUM SULFATE IN WATER 4 GM/100 ML PIGGYBACK IV ONE (20:15)
[2023-08-19] MEDS ORDERED: POTASSIUM CHLORIDE IN WATER 100 ML IV NR (20:15)
[2023-08-20] MEDS ORDERED: DIATRIZOATE MEGLUMINE, SODIUM 30 ML BOTTLE PO ONE (05:00)
[2023-08-20] MEDS ORDERED: METHYLPREDNISOLONE SOD SUCC 40 MG VIAL IV ONE (05:00)
[2023-08-20] MEDS ORDERED: DIPHENHYDRAMINE HCL 50 MG/ML VIAL 1ML IV ONE (05:00)
[2023-08-20] MEDS ORDERED: MAGNESIUM SULFATE/D5W 100 ML IV NR (18:45)
[2023-08-20 23:27] LABS: ob POSITIVE (NEGATIVE)
[2023-08-21] MEDS ORDERED: VANCOMYCIN HCL 125 MG/7.5 ML BLIST.PACK PO SCH (20:00)
[2023-08-22 08:17] LABS: HEMATOCRIT 29.1 % (36.0-45.00); HEMOGLOBIN 9.8 g/dL (12.0-15.00); MEAN CORPUSCULAR HEMOGLOBIN 29.1 pg (27.00-32.0); MEAN CORPUSCULAR HGB CONC 33.8 g/dl (32.0-36.0); PLATELET COUNT 265 K/uL (150-450); RED BLOOD COUNT 3.38 M/uL (4.00-6.00); RED CELL DISTRIBUTION WIDTH 15.1 % (11.5-14.5)
[2023-08-22 08:44] LABS: CALCIUM 8.6 mg/dL (8.5-10.1); CREATININE SERUM 0.51 mg/dL (0.55-1.02); GFR 114.61; POTASSIUM 3.46 mEq/L (3.5-5.1)
[2023-08-22 08:48] LABS: C-REACTIVE PROTEIN 1.24 MG/DL (0.00-0.29)
[2023-08-23 08:02] LABS: CALCIUM 8.4 mg/dL (8.5-10.1); CREATININE SERUM 0.51 mg/dL (0.55-1.02); GFR 114.61; MAGNESIUM 1.7 mg/dL (1.8-2.4); PHOSPHOROUS 2.1 mg/dL (2.5-4.9)
[2023-08-23 08:15] LABS: POTASSIUM 2.92 mEq/L (3.5-5.1)
[2023-08-23] MEDS ORDERED: POTASSIUM CHLORIDE IN WATER 40 MEQ/100 ML PIGGYBAG IV NR (10:30)
[2023-08-23] MEDS ORDERED: POTASSIUM PHOS,M-BASIC-D-BASIC 3 MM/ML VIAL IV NR (10:46)
[2023-08-23] MEDS ORDERED: MAGNESIUM SULFATE IN WATER 2 GM/50 ML PIGGYBAG IV NR (10:46)
[2023-08-23] MEDS ORDERED: VANCOMYCIN HCL 125 MG/7.5 ML BLIST.PACK PO SCH (12:00)
[2023-08-24 08:49] LABS: ALBUMIN 2.1 gm/dL (3.4-5.0); BILIRUBIN TOTAL 0.25 mg/dL (0.3-1.2); CALCIUM 8.2 mg/dL (8.5-10.1); CREATININE SERUM 0.48 mg/dL (0.55-1.02); GFR 122.92; MAGNESIUM 2.9 mg/dL (1.8-2.4); PHOSPHOROUS 2.4 mg/dL (2.5-4.9); POTASSIUM 4.04 mEq/L (3.5-5.1); TOTAL PROTEIN 5.1 gm/dL (6.4-8.2)
[2023-08-25] MEDS ORDERED: DIATRIZOATE MEGLUMINE, SODIUM 30 ML BOTTLE PO NR (13:45)
[2023-08-25] MEDS ORDERED: METOCLOPRAMIDE HCL 5 MG/ML VIAL IV SCH (21:00)
[2023-08-25] MEDS ORDERED: CHOLESTYRAMINE/ASPARTAME LIGHT 4 G/PKT PACKET PO STA (21:01)
[2023-08-25] MEDS ORDERED: CHOLESTYRAMINE/ASPARTAME LIGHT 4 G/PKT PACKET PO PRN (21:15)
[2023-08-26 07:46] LABS: HEMATOCRIT 31.9 % (36.0-45.00); HEMOGLOBIN 10.8 g/dL (12.0-15.00); MEAN CORPUSCULAR HEMOGLOBIN 29.6 pg (27.00-32.0); PLATELET COUNT 196 K/uL (150-450); RED BLOOD COUNT 3.66 M/uL (4.00-6.00); RED CELL DISTRIBUTION WIDTH 15.1 % (11.5-14.5)
[2023-08-26 08:27] LABS: INR 1.09; PARTIAL THROMBOPLASTIN TIME 33.6 SECONDS (22.0-34.0); PROTHROMBIN TIME 11.4 SECONDS (9.0-11.5)
[2023-08-26 08:29] LABS: ALBUMIN 2.3 gm/dL (3.4-5.0); BILIRUBIN TOTAL 0.3 mg/dL (0.3-1.2); BILIRUBIN,CONJUGATED 0.11 mg/dL (0.0-0.2); BILIRUBIN,UNCONJUGATED 0.19 mg/dL (0.0-0.6); CALCIUM 8.7 mg/dL (8.5-10.1); CHOL HDL RATIO 5.7 (0-5.0); CREATININE SERUM 0.53 mg/dL (0.55-1.02); GFR 109.64; GLOBULINA 3.6 G/DL (2.4-3.5); MAGNESIUM 1.8 mg/dL (1.8-2.4); POTASSIUM 4.25 mEq/L (3.5-5.1); TOTAL PROTEIN 5.9 gm/dL (6.4-8.2)
[2023-08-26 08:49] LABS: UREA CLEARANCE 28.5 ML/MIN
[2023-08-26] MEDS ORDERED: DIPHENHYDRAMINE HCL 50 MG/ML VIAL 1ML IV SCH (13:00)
[2023-08-26] MEDS ORDERED: METHYLPREDNISOLONE SOD SUCC 40 MG VIAL IV SCH (13:00)
[2023-08-26] MEDS ORDERED: VANCOMYCIN PO SCH (19:53)
[2023-08-27] MEDS ORDERED: PATIENTS OWN MEDICATION (MEDICAMENTO EN PISO) PO SCH (12:00)
[2023-08-27] MEDS ORDERED: Duloxetine HCl 30 MG CAPSULE.DR PO SCH (12:03)
[2023-08-27] MEDS ORDERED: VITAMIN B COMPLEX/LYSINE 1 ML ML PO SCH (13:26)
[2023-08-27] MEDS ORDERED: MEGESTROL ACETATE 400 MG/10 ML BLIST PACK PO SCH (17:00)
[2023-08-27] MEDS ORDERED: GABAPENTIN 100 MG CAPSULE PO SCH (21:00)
[2023-08-29 07:52] LABS: HEMATOCRIT 28.2 % (36.0-45.00); HEMOGLOBIN 9.7 g/dL (12.0-15.00); MEAN CELL VOLUME 86.5 fL (80.00-100.00); MEAN CORPUSCULAR HEMOGLOBIN 29.7 pg (27.00-32.0); MEAN CORPUSCULAR HGB CONC 34.3 g/dl (32.0-36.0); PLATELET COUNT 158 K/uL (150-450); RED BLOOD COUNT 3.25 M/uL (4.00-6.00); RED CELL DISTRIBUTION WIDTH 14.9 % (11.5-14.5)
[2023-08-29 09:08] LABS: CALCIUM 8.2 mg/dL (8.5-10.1); CREATININE SERUM 0.46 mg/dL (0.55-1.02); GFR 129.11; MAGNESIUM 1.5 mg/dL (1.8-2.4); PHOSPHOROUS 2.1 mg/dL (2.5-4.9); POTASSIUM 3.23 mEq/L (3.5-5.1)
[2023-08-29] MEDS ORDERED: DEXTROSE 50 % IN WATER 0.5 G/ML DISP.SYRIN IV PRN (11:15)
[2023-08-29] MEDS ORDERED: POTASSIUM PHOS,M-BASIC-D-BASIC 3 MM/ML VIAL IV NR (11:45)
[2023-08-29] MEDS ORDERED: POTASSIUM CHLORIDE 20MEQ/100ML H2O PB IV NR (11:45)
[2023-08-29] MEDS ORDERED: MAGNESIUM SULFATE IN WATER 50 ML IV NR (11:45)
[2023-08-30] MEDS ORDERED: LEVOTHYROXINE SODIUM 50 MCG TABLET PO SCH (06:00)
[2023-08-30] MEDS ORDERED: TAMS0.4C PO (15:55)
[2023-08-30] MEDS ORDERED: HYOSCYAMINE0.125 M1 SL (15:55)
[2023-08-30] MEDS ORDERED: PRE PROTEIN1 EACH PO (15:56)
[2023-08-30] MEDS ORDERED: MONTELUKAST SOD10 MG PO (15:56)
[2023-08-30] MEDS ORDERED: GABAPENTIN100 MG PO (15:56)
[2023-08-30] MEDS ORDERED: CARAFATE1 GM PO (15:57)
[2023-08-30] MEDS ORDERED: INTESTINEX680 M1 PO (15:57)
[2023-08-30] MEDS ORDERED: SIMETHICONE125 M1 PO (15:57)
[2023-08-30] MEDS ORDERED: CELEBREX200MG PO (15:59)
[2023-08-30] MEDS ORDERED: APETIGEN L790 MG/15 PO (16:01)
[2023-08-30] MEDS ORDERED: MIRALAX17 GM PO (16:02)
[2023-08-30] MEDS ORDERED: PROTONIX20 MG PO (16:03)
== END 2023-08-30 20:18 | disposition home or self-care (01) | DRG 329 ==
LOC: SURH 07-16 06:05 → O/R 07-16 06:05 → SURG 07-16 11:15 → SURH 07-16 12:06 → ICU 07-25 18:00 → SURH 08-04 13:48
PROVIDERS: Internal Medicine; Internal Medicine Endocrinology, Diabetes & Metabolism; Internal Medicine Geriatric Medicine; Internal Medicine Infectious Disease; Internal Medicine Nephrology; Specialist; Surgery; ADMIT Colon & Rectal Surgery; ATTEND Colon & Rectal Surgery
PROC: 0WQF4ZZ Repair Abdominal Wall, Percutaneous Endoscopic Approach (ICD-10-PCS; 2023-07-16)
PROC: 0DTP4ZZ Resection of Rectum, Percutaneous Endoscopic Approach (ICD-10-PCS; 2023-07-16)
PROC: 0KXL0ZZ Transfer Left Abdomen Muscle, Open Approach (ICD-10-PCS; 2023-07-16)
PROC: 0KXK0ZZ Transfer Right Abdomen Muscle, Open Approach (ICD-10-PCS; 2023-07-16)
PROC: 0DBN4ZZ Excision of Sigmoid Colon, Percutaneous Endoscopic Approach (ICD-10-PCS; principal; 2023-07-16 11:15)
PROC: 3E0F7GC Introduction of Other Therapeutic Substance into Respiratory Tract, Via Natural or Artificial Opening (ICD-10-PCS; 2023-07-17)
PROC: 4A12X4Z Monitoring of Cardiac Electrical Activity, External Approach (ICD-10-PCS; 2023-07-18)
PROC: 02HV33Z Insertion of Infusion Device into Superior Vena Cava, Percutaneous Approach (ICD-10-PCS; 2023-07-22)
PROC: 0W9F30Z Drainage of Abdominal Wall with Drainage Device, Percutaneous Approach (ICD-10-PCS; 2023-07-23)
PROC: 30233N1 Transfusion of Nonautologous Red Blood Cells into Peripheral Vein, Percutaneous Approach (ICD-10-PCS; 2023-07-27)
PROC: 0W2FX0Z Change Drainage Device in Abdominal Wall, External Approach (ICD-10-PCS; 2023-07-30)
PROC: 0W9F30Z Drainage of Abdominal Wall with Drainage Device, Percutaneous Approach (ICD-10-PCS; 2023-07-30)
DX: K57.32 Diverticulitis of large intestine without perforation or abscess without bleeding (principal); A41.9 Sepsis, unspecified organism; J18.9 Pneumonia, unspecified organism; K92.1 Melena; K43.0 Incisional hernia with obstruction, without gangrene; N17.9 Acute kidney failure, unspecified; K91.89 Other postprocedural complications and disorders of digestive system; N39.0 Urinary tract infection, site not specified; T81.43XA Infection following a procedure, organ and space surgical site, initial encounter; J90 Pleural effusion, not elsewhere classified; Z93.3 Colostomy status; K66.0 Peritoneal adhesions (postprocedural) (postinfection); K57.20 Diverticulitis of large intestine with perforation and abscess without bleeding; R41.0 Disorientation, unspecified; E78.5 Hyperlipidemia, unspecified; E03.9 Hypothyroidism, unspecified; J45.20 Mild intermittent asthma, uncomplicated; R53.81 Other malaise; G47.30 Sleep apnea, unspecified; I10 Essential (primary) hypertension; E11.9 Type 2 diabetes mellitus without complications; Z79.4 Long term (current) use of insulin; D64.89 Other specified anemias; D72.828 Other elevated white blood cell count